=== PATIENT | female | born 1980 | race African-American/Black ===

== ENCOUNTER 2017-01-12 14:36 | Emergency (ER) | payer MEDICAID, MEDICARE ==
[2016-05-12 17:40] VITALS: BP 121/80
[~2017-01-12] VITALS: Ht 162.6 cm; Wt 71.2 kg
[~2017-01-12 14:36] MED LIST: TOBR5DRO EACHEYE
[2017-01-12] MEDS ORDERED: AMOX500C PO (15:16)
--- NOTE | 2017-01-12 15:16 | PHYS DOC ---
Past Medical History Past Medical History: No Pertinent History Past Surgical History: Other Additional Past Surgical Histo: C section Alcohol Use: None Drug Use: None Adult General Chief Complaint Chief Complaint: DENTAL PROBLEM HPI HPI Patient is a 36 year old female presents to the emergency department stating that she has having left lower left upper molar dental pain and discomfort. She states it started at 3:00 this morning. She denies any fever, chills or any nausea vomiting. She states that is causing her to have a headache on the left side of her head. Patient denies having a dentist to follow-up with. She denies any foul taste denies any fever, chills or any nausea vomiting. Patient states she's taken Tylenol for the pain and discomfort with minimal relief. Review of Systems Review of Systems Constitutional: Denies fever or chills [] Eyes: Denies change in visual acuity, redness, or eye pain [] HENT: Denies nasal congestion or sore throat. C/o Dental pain Respiratory: Denies cough or shortness of breath [] Cardiovascular: No additional information not addressed in HPI [] GI: Denies abdominal pain, nausea, vomiting, bloody stools or diarrhea [] : Denies dysuria or hematuria [] Musculoskeletal: Denies back pain or joint pain [] Integument: Denies rash or skin lesions [] Neurologic: Denies headache, focal weakness or sensory changes [] Endocrine: Denies polyuria or polydipsia [] Allergies Allergies Allergies Coded Allergies Type Severity Reaction Last Updated Verified No Known Drug Allergies 09/21/14 No Physical Exam Physical Exam Constitutional: Well developed, well nourished, no acute distress, non-toxic appearance. [] HENT: Normocephalic, atraumatic, bilateral external ears normal, oropharynx moist, no oral exudates, nose normal. Bilateral tympanic membranes appears to be normal. Patient with a decayed tooth on the left lower area. She appears to also have a broken off cracked tooth that is broken to the gumline on the left upper second molar. Area appears to be very red and tender. Eyes: PERRLA, EOMI, conjunctiva normal, no discharge. [] Neck: Normal range of motion, no tenderness, supple, no stridor. [] Cardiovascular:Heart rate regular rhythm, no murmur [] Lungs & Thorax: Bilateral breath sounds clear to auscultation [] Skin: Warm, dry, no erythema, no rash. [] Back: No tenderness Extremities: No tenderness, no cyanosis, no clubbing, ROM intact, no edema. [] Neurologic: Alert and oriented X 3, normal motor function, normal sensory function, no focal deficits noted. [] Psychologic: Affect normal, judgement normal, mood normal. [] Current Patient Data Vital Signs Vital Signs Date Time Temp Pulse Resp B/P (MAP) Pulse Ox O2 Delivery O2 Flow Rate FiO2 01/12/17 14:52 98.7 114 14 98 Room Air 98.7 EKG EKG [] Radiology/Procedures Radiology/Procedures [] Course & Med Decision Making Course & Med Decision Making Pertinent Labs and Imaging studies reviewed. (See chart for details) Patient was instructed to use warm salt water mouth rinses 4 times a day. She be placed on antibiotics such as amoxicillin. Recommended Tylenol and ibuprofen for pain and discomfort. Recommended that she follow up with the dentist within the week. Since symptoms to return back to emergency department been provided. Patient will be discharged home in stable condition signs symptoms as mentioned to return to the emergency department as been provided. All questions and concerns of been answered patient's bedside. Patient is requesting a work note for today. [] Dragon Disclaimer Dragon Disclaimer This electronic medical record was generated, in whole or in part, using a voice recognition dictation system. Departure Departure Impression: Primary Impression: Pain, dental Disposition: HOME, SELF-CARE Condition: STABLE Referrals: NO PCP (PCP) Patient Instructions: Dental Caries-Brief, Dental Pain, [id number] Additional Instructions: Activity as tolerated. Medications as prescribed. Tylenol or ibuprofen for pain and discomfort. Warm salt water mouth rinses 4 times a day. Pressure teeth and flush her tooth at least twice a day. Follow-up with a dentist within the week. Return back to emergency department sign symptoms that become worse. Scripts Amoxicillin (AMOXICILLIN) 500 Mg Capsule 1 CAP PO QID, #40 CAP Prov: CHRISTY SIDDIIQ APRN 01/12/17 CHRISTY SIDDIQI APRN Jan 12, 2017 15:16
== END 2017-01-12 15:22 | disposition home or self-care (01) ==
LOC: ER 14:36
DX: K08.89 Other specified disorders of teeth and supporting structures (principal); R51 Headache
CPT/HCPCS: 99283

== ENCOUNTER 2020-07-10 12:47 | Emergency (ER) | payer MEDICARE, OTHER ==
[~2020-07-10] VITALS: Ht 162.6 cm; Wt 68.0 kg
[~2020-07-10 12:47] MED LIST changes: +AMOX500C PO
[2020-07-10 13:27] LABS: BASO % 1 % (0-3); EOS # 0.5 x10^3/uL (0.0-0.7); EOS % 6 % (0-3); HEMATOCRIT 37.2 % (36.0-47.0); HEMOGLOBIN 11.9 g/dL (12.0-15.5); LYMPH # 1.6 x10^3/uL (1.0-4.8); LYMPH % 20 % (24-48); MEAN CORPUSCULAR HEMOGLOBIN 27 pg (25-35); MEAN CORPUSCULAR HGB CONC 32 g/dL (31-37); MEAN CORPUSCULAR VOLUME 83 fL (79-100); MONO # 0.6 x10^3/uL (0.0-1.1); MONO % 7 % (0-9); NEUT # 5.1 x10^3/uL (1.8-7.7); NEUT % 66 % (31-73); PLATELET COUNT 311 x10^3/uL (140-400); RED BLOOD COUNT 4.49 x10^6/uL (3.50-5.40); RED CELL DISTRIBUTION WIDTH 14.8 % (11.5-14.5); WHITE BLOOD COUNT 7.8 x10^3/uL (4.0-11.0)
[2020-07-10 13:31] LABS: CALCIUM 8.7 mg/dL (8.5-10.1); GFR 75.1; POTASSIUM 3.9 mmol/L (3.5-5.1)
[2020-07-10 13:37] LABS: ALBUMIN 3.4 g/dL (3.4-5.0); ALBUMIN/GLOBULIN RATIO 0.9 (1.0-1.7); TOTAL BILIRUBIN 0.6 mg/dL (0.2-1.0); TOTAL PROTEIN 7.1 g/dL (6.4-8.2)
[2020-07-10 13:41] LABS: PREG TEST PT QUAL NEGATIVE (NEG)
[2020-07-10 13:46] LABS: CLARITY,URINE CLOUDY
[2020-07-10 13:47] LABS: COLOR,URINE RED
[2020-07-10 13:49] LABS: RBC,URINE TNTC /HPF (0-2)
[2020-07-10 13:53] LABS: BACTERIA,URINE MODERATE /HPF (0-FEW)
--- NOTE | 2020-07-10 14:23 | PHYS DOC ---
Past Medical History Past Medical History: No Pertinent History (CHRIS CERRATO APRN) Past Surgical History: Other Additional Past Surgical Histo: C section (CHRIS CERRATO APRN) Smoking Status: Current Every Day Smoker Alcohol Use: None Drug Use: None (CHRIS CERRATO APRN) General Adult EDM: Chief Complaint: VAGINAL BLEEDING HPI: HPI: Patient is a 39 year old female 3 para 1 currently presenting to the ED today complaining of vaginal bleeding in . Patient states her last menstrual cycle was June 15, 2020. She states she had a positive test 2 weeks after her last menstrual cycle and it was positive. She states her vaginal bleeding began last night. She states today she has used 2 feminine pad s. She is also complaining of lower abdominal cramping. (CHRIS CERRATO APRN) Review of Systems: Review of Systems: Constitutional: Denies fever or chills. [] GI: Reports abdominal cramping, vaginal bleeding in , denies nausea, vomiting, bloody stools or diarrhea. [] : Denies dysuria. [] Musculoskeletal: Denies back pain or joint pain. [] Integument: Denies rash. [] Neurologic: Denies headache, focal weakness or sensory changes. [] Psychiatric: Denies depression or anxiety. [] (CHRIS CERRATO APRN) Heart Score: Risk Factors: Risk Factors: DM, Current or recent (<one month) smoker, HTN, HLP, family history of CAD, obesity. Risk Scores: Score 0 - 3: 2.5% MACE over next 6 weeks - Discharge Home Score 4 - 6: 20.3% MACE over next 6 weeks - Admit for Clinical Observation Score 7 - 10: 72.7% MACE over next 6 weeks - Early Invasive Strategies (CHRIS CERRATO APRN) Allergies: Allergies: Allergies Coded Allergies Type Severity Reaction Last Updated Verified No Known Drug Allergies 09/21/14 No (CHRIS CERRATO APRN) Physical Exam: PE: Constitutional: Well developed, well nourished, no acute distress, non-toxic appearance. [] Abdomen: Bowel sounds normal, soft, no tenderness, no masses, no pulsatile masses. [] Pelvic exam External pelvic appears normal, cervix is visualized, blood in the cervical os, small amount of bright red blood in the vaginal vault, no CMT, no adnexal tenderness Skin: Warm, dry, no erythema, no rash. [] Back: No tenderness, no CVA tenderness. [] Extremities: No tenderness, no cyanosis, no clubbing, ROM intact, no edema. [] Neurologic: Alert and oriented X 3, normal motor function, normal sensory function, no focal deficits noted. [] Psychologic: Affect normal, judgement normal, mood normal. [] (MUTUNGA,CHRIS MORTGAGE LENDER) Current Patient Data: Labs: Laboratory Tests Test 07/10/20 12:50 07/10/20 13:00 Urine Collection Type Unknown Urine Color Red Urine Clarity Cloudy Urine pH (<5.0-8.0) Urine Specific Mcdermitt (1.000-1.030) Urine Protein mg/dL (NEG-TRACE) Urine Glucose (UA) mg/dL (NEG) Urine Ketones (Stick) mg/dL (NEG) Urine Blood (NEG) Urine Nitrite (NEG) Urine Bilirubin (NEG) Urine Urobilinogen Dipstick mg/dL (0.2 mg/dL) Urine Leukocyte Esterase (NEG) Urine RBC Tntc /HPF (0-2) Urine WBC 1-4 /HPF (0-4) Urine Squamous Epithelial Cells Many /LPF Urine Bacteria Moderate /HPF (0-FEW) Urine Mucus Slight /LPF White Blood Count 7.8 x10^3/uL (4.0-11.0) Red Blood Count 4.49 x10^6/uL (3.50-5.40) Hemoglobin 11.9 g/dL (12.0-15.5) L Hematocrit 37.2 % (36.0-47.0) Mean Corpuscular Volume 83 fL (79-100) Mean Corpuscular Hemoglobin 27 pg (25-35) Mean Corpuscular Hemoglobin Concent 32 g/dL (31-37) Red Cell Distribution Width 14.8 % (11.5-14.5) H Platelet Count 311 x10^3/uL (140-400) Neutrophils (%) (Auto) 66 % (31-73) Lymphocytes (%) (Auto) 20 % (24-48) L Monocytes (%) (Auto) 7 % (0-9) Eosinophils (%) (Auto) 6 % (0-3) H Basophils (%) (Auto) 1 % (0-3) Neutrophils # (Auto) 5.1 x10^3/uL (1.8-7.7) Lymphocytes # (Auto) 1.6 x10^3/uL (1.0-4.8) Monocytes # (Auto) 0.6 x10^3/uL (0.0-1.1) Eosinophils # (Auto) 0.5 x10^3/uL (0.0-0.7) Basophils # (Auto) 0.0 x10^3/uL (0.0-0.2) Maternal Serum HCG Beta Subunit < 1 mIU/mL (0-5) Sodium Level 142 mmol/L (136-145) Potassium Level 3.9 mmol/L (3.5-5.1) Chloride Level 106 mmol/L (98-107) Carbon Dioxide Level 27 mmol/L (21-32) Anion Gap 9 (6-14) Blood Urea Nitrogen 17 mg/dL (7-20) Creatinine 1.0 mg/dL (0.6-1.0) Estimated GFR (Cockcroft-Gault) 75.1 BUN/Creatinine Ratio 17 (6-20) Glucose Level 104 mg/dL (70-99) H Calcium Level 8.7 mg/dL (8.5-10.1) Total Bilirubin 0.6 mg/dL (0.2-1.0) Aspartate Amino Transferase (AST) 14 U/L (15-37) L Alanine Aminotransferase (ALT) 23 U/L (14-59) Alkaline Phosphatase 62 U/L (46-116) Total Protein 7.1 g/dL (6.4-8.2) Albumin 3.4 g/dL (3.4-5.0) Albumin/Globulin Ratio 0.9 (1.0-1.7) L Serum Test, Qualitative Negative (NEG) Laboratory Tests 07/10/20 13:00 Laboratory Tests 07/10/20 13:00 Microbiology 07/10/20 Wet Prep - Final, Complete Vital Signs: Vital Signs Date Time Temp Pulse Resp B/P (MAP) Pulse Ox O2 Delivery O2 Flow Rate FiO2 07/10/20 12:50 98.1 85 16 147/81 (103) 100 Room Air 98.1 (CHRIS CERRATO APRN) EKG: EKG: [] (CHRIS CERRATO APRN) Radiology/Procedures: Radiology/Procedures: [] (CHRIS CERRATO APRN) Course & Med Decision Making: Course & Med Decision Making Pertinent Labs and Imaging studies reviewed. (See chart for details) This is a 39-year-old female patient presenting to the ED today complaining of vaginal bleeding in , symptoms began last night. Negative urine hCG. Beta-hCG less than 1. UA not readable by lab due to color. Hemoglobin 11.9, hematocrit is normal. CMP with no acute findings, wet prep is negative. Discharge home. She has an appointment with her OB next week. (CHRIS CERRATO APRN) Dragon Disclaimer: Dragon Disclaimer: This electronic medical record was generated, in whole or in part, using a voice recognition dictation system. (CHRIS CERRATO APRN) Departure Departure Impression: Primary Impression: Dysfunctional uterine bleeding Disposition: 01 DC HOME SELF CARE/HOMELESS Condition: STABLE Referrals: NO PCP (PCP) PORFIRIO RUBIO MD follow up next week Patient Instructions: Uterine Bleeding, Dysfunctional Additional Instructions: You were evaluated in the emergency room, your urine test is negative, your blood test is negative. You are currently not . Please follow-up with your TASSEL CLIPPER next week. Attending Signature Attending Signature I have reviewed the PA/FILM RECORDIST's note and plan of care. I was available for consultation as needed during the patient's visit in the emergency department. I agree with the clinical impression, plan, and disposition. (PORFIRIO ELMORE DO) CHRIS CERRATO APRN Jul 10, 2020 14:23 PORFIRIO ELMORE DO Jul 10, 2020 17:14
[2020-07-10 14:31] VITALS: BP 114/71
[2020-07-12 12:50] LABS: GC PROBE Negative (Negative)
--- NOTE | 2020-07-13 13:49 | VNOTE ---
CALL BACK NOTE CALL BACK Microbiology 07/10/20 Urine Culture - Final, Complete 07/10/20 Antimicrobic Susceptibility - Final, Complete 07/10/20 Wet Prep - Final, Complete Positive urine culture, called patient, phone states call rejected CHRIS CERRATO APRN Jul 13, 2020 13:49
== END 2020-07-10 14:31 | disposition home or self-care (01) ==
LOC: ER 12:47
DX: N93.8 Other specified abnormal uterine and vaginal bleeding (principal); F17.200 Nicotine dependence, unspecified, uncomplicated
CPT/HCPCS: 36415; 80053; 81001; 84702; 84703; 85025; 86850; 86900; 86901; 87086; 87491; 87591; 99284; Q0111; 87077; 87186

== ENCOUNTER 2021-02-25 08:54 | Emergency (ER) | payer SELFPAY ==
[~2021-02-25] VITALS: Ht 162.6 cm; Wt 70.7 kg
[2021-02-25] MEDS ORDERED: IBUPROFEN 200 MG TABLET. PO ONE (09:15)
--- NOTE | 2021-02-25 09:19 | PHYS DOC ---
Past Medical History Past Medical History: No Pertinent History Past Surgical History: Other Additional Past Surgical Histo: C section Smoking Status: Current Every Day Smoker Alcohol Use: None Drug Use: None General Adult EDM: Chief Complaint: HEAD INJURY/TRAUMA HPI: HPI: Patient is a 40 year old female who presents with states this morning when she got up was getting ready for work she hit her right forehead on a wall. She now has a dollar coin sized hematoma without laceration or abrasion. She denies dizziness, syncope, blood thinners, vision changes, nausea, vomiting, neck pain, numbness or tingling, focal weakness. She drove herself. Rates a headache at 9 0. Did not take any medication prior to ED visit. Review of Systems: Review of Systems: Constitutional: Denies fever or chills. [] Eyes: Denies change in visual acuity. [] HENT: Denies nasal congestion or sore throat. [] Respiratory: Denies cough or shortness of breath. [] Cardiovascular: Denies chest pain or edema. [] GI: Denies abdominal pain, nausea, vomiting, bloody stools or diarrhea. [] : Denies dysuria. [] Musculoskeletal: Denies back pain or joint pain. [] Integument: Denies rash. +Forehead bruise. [] Neurologic: + headache, denies focal weakness or sensory changes. [] Endocrine: Denies polyuria or polydipsia. [] Lymphatic: Denies swollen glands. [] Psychiatric: Denies depression or anxiety. [] Heart Score: C/O Chest Pain: No Risk Factors: Risk Factors: DM, Current or recent (<one month) smoker, HTN, HLP, family history of CAD, obesity. Risk Scores: Score 0 - 3: 2.5% MACE over next 6 weeks - Discharge Home Score 4 - 6: 20.3% MACE over next 6 weeks - Admit for Clinical Observation Score 7 - 10: 72.7% MACE over next 6 weeks - Early Invasive Strategies Allergies: Allergies: Allergies Coded Allergies Type Severity Reaction Last Updated Verified No Known Drug Allergies 09/21/14 No Physical Exam: PE: Constitutional: Well developed, well nourished, no acute distress, non-toxic appearance. [] HENT: Normocephalic, atraumatic, bilateral external ears normal, oropharynx moist, no oral exudates, nose normal. [] Eyes: PERRLA, EOMI, conjunctiva normal, no discharge. [] Neck: Normal range of motion, no tenderness, supple, no stridor. [] Cardiovascular:Heart rate regular rhythm, no murmur [] Lungs & Thorax: Bilateral breath sounds clear to auscultation [] Abdomen: Bowel sounds normal, soft, no tenderness, no masses, no pulsatile masses. [] Skin: Warm, dry, no erythema, no rash. Right forehead dollar coin sized hematoma. [] Back: No tenderness, no CVA tenderness. [] Extremities: No tenderness, no cyanosis, no clubbing, ROM intact, no edema. [] Neurologic: Alert and oriented X 3, normal motor function, normal sensory function, no focal deficits noted. [] Psychologic: Affect normal, judgement normal, mood normal. [] EKG: EKG: [] Radiology/Procedures: Radiology/Procedures: [] Course & Med Decision Making: Course & Med Decision Making Pertinent Labs and Imaging studies reviewed. (See chart for details) See HPI. Alert and oriented x4. Ambulatory steady gait. Speaks in full clear sentences. Skin pink warm and dry. PERRLA. No nystagmus. Patient has a dollar coin size hematoma to the right upper forehead area. No laceration or abrasion. No focal bony spinal tenderness. Full range of motion of her neck. Denies any other injuries. Patient Is given ibuprofen in the ED. no signs of concussion at this time. Patient is stable and in no distress. Per Kaufman CT head rule no CT is needed for her head. [] Merle Disclaimer: Merle Disclaimer: This electronic medical record was generated, in whole or in part, using a voice recognition dictation system. Departure Departure Impression: Primary Impression: Head injury Qualified Codes: S09.90XA - Unspecified injury of head, initial encounter Disposition: HOME / SELF CARE / HOMELESS Condition: STABLE Referrals: NO PCP (PCP) Patient Instructions: Head Injury, Adult Additional Instructions: Follow-up with primary care provider if needed. If you begin feeling dizzy, valadez ve a intractable headache, begin vomiting return emergency room. CHRISTY ADHIKARI APRN Feb 25, 2021 09:19
[2021-02-25 09:31] VITALS: BP 120/68
== END 2021-02-25 09:31 | disposition home or self-care (01) ==
LOC: ER 08:54
DX: S09.90XA Unspecified injury of head, initial encounter (principal); F17.200 Nicotine dependence, unspecified, uncomplicated; W22.01XA Walked into wall, initial encounter; Y93.89 Activity, other specified; Y92.69 Other specified industrial and construction area as the place of occurrence of the external cause; Y99.0 Civilian activity done for income or pay
CPT/HCPCS: 99282